=== PATIENT | male | born 1995 | race Caucasian/White ===

== ENCOUNTER 2020-11-19 09:28 | Emergency (ER) | payer MEDICAID, OTHER ==
[~2020-11-19] VITALS: Ht 170.2 cm; Wt 81.6 kg
[2020-11-19 09:29] VITALS: BP 121/78
[2020-11-19] MEDS ORDERED: metroNIDAZOLE 500 MG TAB PO ONE (09:55)
[2020-11-19] MEDS ORDERED: cefTRIAXone 1,000 MG in LIDOCAINE MPF 1% 2.1 ML IM ONE (09:55)
[2020-11-19] MEDS ORDERED: DOXYCYCLINE 100 MG CAP PO SCH (09:55)
[2020-11-19] MEDS ORDERED: ACYCLOVIR 200 MG CAP PO ONE (10:00)
[2020-11-19] MEDS ORDERED: LIDOCAINE MPF 1% 5 ML ONE (10:04)
[2020-11-19] MEDS ORDERED: cefTRIAXone 1,000 MG VIAL ONE (10:04)
[2020-11-19] MEDS ORDERED: metroNIDAZOLE 500 MG TAB ONE (10:06)
[2020-11-19] MEDS ORDERED: ACYC400T PO (10:20)
[2020-11-19] MEDS ORDERED: DOXY-487 PO (10:20)
[2020-11-19 10:39] LABS: APPEARANCE,URINE CLOUDY (CLEAR); BILIRUBIN,URINE NEGATIVE (NEGATIVE); BLOOD, URINE NEGATIVE (NEGATIVE); COLOR,URINE AMBER (YELLOW); LEUKOCYTE ESTERASE ,URINE 1+ (NEGATIVE); NITRITE, URINE NEGATIVE (NEGATIVE); UGLUCOSE NEGATIVE (NEGATIVE)
[2020-11-19 11:03] VITALS: BP 121/78
[2020-11-19 11:11] LABS: RAPID PLASMA REAGIN NON-REACTIVE (Non Reactiv)
[2020-11-19 13:39] LABS: RBC,URINE FEW /HPF (0-5)
== END 2020-11-19 11:03 | disposition home or self-care (01) ==
LOC: MED 09:28
DX: A60.00 Herpesviral infection of urogenital system, unspecified (principal); Z79.899 Other long term (current) drug therapy
CPT/HCPCS: 36415; 81001; 86592; 86703; 87070; 87086; 87205; 87252; 87491; 96372; 99284; J0696; J2001

== ENCOUNTER 2021-01-26 13:13 | Emergency (ER) | payer MEDICAID ==
[~2021-01-26] VITALS: Ht 170.2 cm; Wt 81.6 kg
[~2021-01-26 13:13] MED LIST: ACYC400T PO; DOXY-487 PO
[2021-01-26 13:21] VITALS: BP 144/78
--- NOTE | 2021-01-26 13:29 | NUR ---
Patient ambulated with steady gait to bed 7.
--- NOTE | 2021-01-26 13:31 | NUR ---
SUE SOLIMAN AT BEDSIDE EVALUATING PT
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
[2021-01-26] MEDS ORDERED: NAPR-54 PO (13:39)
[2021-01-26] MEDS ORDERED: SULF-59 PO (13:39)
[2021-01-26 13:45] VITALS: BP 144/78
--- NOTE | 2021-01-26 13:46 | NUR ---
Patient discharged with v/s stable. Written and verbal after care instructions given FOR BUG BITE and explained. Patient alert, oriented and verbalized understanding of instructions. Ambulatory with steady gait. All questions addressed prior to discharge. ID band removed. Patient advised to follow up with PMD. Rx of BACTRIM PO BID [id number], AND NAPROXEN 500MG PO BID PRN PAIN [id number] given. Patient educated on indication of medication including possible reaction and side effects. Opportunity to ask questions provided and answered.
== END 2021-01-26 13:44 | disposition home or self-care (01) ==
LOC: MED 13:13
DX: L02.416 Cutaneous abscess of left lower limb (principal); F15.10 Other stimulant abuse, uncomplicated; Z79.899 Other long term (current) drug therapy
CPT/HCPCS: 99283

== ENCOUNTER 2021-04-06 10:52 | Emergency (ER) | payer MEDICAID ==
[~2021-04-06] VITALS: Ht 170.2 cm; Wt 81.6 kg
[~2021-04-06 10:52] MED LIST changes: -ACYC400T PO; +ACYC400T14 PO; +NAPR-54 PO; +SULF-59 PO
[2021-04-06 10:58] VITALS: BP 141/78
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
[2021-04-06] MEDS ORDERED: NAPR-54 PO (12:58)
[2021-04-06] MEDS ORDERED: IBUPROFEN 800 MG TAB PO ONE (13:00)
[2021-04-06 13:18] VITALS: BP 141/78
== END 2021-04-06 13:17 | disposition home or self-care (01) ==
LOC: MED 10:52
DX: S92.411A Displaced fracture of proximal phalanx of right great toe, initial encounter for closed fracture (principal); Z79.899 Other long term (current) drug therapy; W22.8XXA Striking against or struck by other objects, initial encounter; Y93.89 Activity, other specified; Y92.89 Other specified places as the place of occurrence of the external cause; Y99.8 Other external cause status
CPT/HCPCS: 73660; 99283

== ENCOUNTER 2021-04-30 08:03 | Emergency (ER) | payer MEDICAID ==
[~2021-04-30] VITALS: Ht 170.2 cm; Wt 81.6 kg
[2021-04-30 08:09] VITALS: BP 158/89
--- NOTE | 2021-04-30 08:13 | NUR ---
PT AMBULATED TO BED 9
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
--- NOTE | 2021-04-30 08:41 | NUR ---
RADIOLOGY AT BEDSIDE TAKING X-RAY
--- NOTE | 2021-04-30 08:59 | NUR ---
dr. mcgee bedside evaluating pt
[2021-04-30] MEDS ORDERED: KETOROLAC 60 MG/2 ML VIAL IM ONE (09:05)
[2021-04-30] MEDS ORDERED: ACET-8386 PO (09:33)
[2021-04-30] MEDS ORDERED: IBUP-2213 PO (09:33)
[2021-04-30 09:48] VITALS: BP 117/75
--- NOTE | 2021-04-30 09:50 | NUR ---
Patient discharged with v/s stable. Written and verbal after care instructions given and explained. Patient alert, oriented and verbalized understanding of instructions. Ambulatory with steady gait. All questions addressed prior to discharge. ID band removed. Patient advised to follow up with PMD. Rx of HYDROCODONE/ACETAMINOPHEN, IBUPROFEN given. Patient educated on indication of medication including possible reaction and side effects. Opportunity to ask questions provided and answered.
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
== END 2021-04-30 09:50 | disposition home or self-care (01) ==
LOC: MED 08:03
DX: S43.122A Dislocation of left acromioclavicular joint, 100%-200% displacement, initial encounter (principal); F17.210 Nicotine dependence, cigarettes, uncomplicated; W19.XXXA Unspecified fall, initial encounter; Y93.89 Activity, other specified; Y92.89 Other specified places as the place of occurrence of the external cause; Y99.8 Other external cause status
CPT/HCPCS: 73030; 96372; 99283; J1885; Q0092

== ENCOUNTER 2022-07-17 16:21 | Emergency (ER) | payer MEDICAID ==
[~2022-07-17 16:21] MED LIST changes: +ACET-8386 PO; +IBUP-2213 PO
--- NOTE | 2022-07-17 16:43 | NUR ---
PT CALLED TO TRIAGE NO RESPONSE
--- NOTE | 2022-07-17 17:11 | NUR ---
CALLED TO TRIAGE NO REPLY
--- NOTE | 2022-07-17 17:16 | NUR ---
PT CALLED NO REPLY, PATIENT LEFT WITHOUT BEING SEEN BY DR. LAGUNA. NO FURTHER CARE PROVIDED FOR PATIENT.
== END 2022-07-17 17:16 | disposition left against medical advice (07) ==
LOC: MED 16:21
DX: J11.1 Influenza due to unidentified influenza virus with other respiratory manifestations (principal); Z53.21 Procedure and treatment not carried out due to patient leaving prior to being seen by health care provider